=== PATIENT | male | born 1980 | race American Indian/Alaskan Native ===

== ENCOUNTER 2025-01-29 13:52 | Emergency (ER) | payer OTHER | END 2025-01-29 17:29 | disposition home or self-care (01) | LOC: MW.ED 13:52 | DX: S06.0X0A Concussion without loss of consciousness, initial encounter (principal); I10 Essential (primary) hypertension; W00.0XXA Fall on same level due to ice and snow, initial encounter | CPT/HCPCS: 99283 ==